=== PATIENT | female | born 1975 | race Caucasian/White ===

== ENCOUNTER 2021-10-22 14:55 | Outpatient (REF) | payer MEDICARE, MEDICAID, SELFPAY ==
[2021-10-22 15:55] LABS: MANUAL DIFF FLAG NO
[2021-10-22 16:00] LABS: Basophils Absolute Auto 0.1 X10*3/uL (0.0-0.2); Basophils Percent Auto 0.6 % (0-2); Eosinophils Absolute Auto 0.3 X10*3/uL (0.0-0.4); Eosinophils Percent Auto 4.1 % (0-4); Hematocrit 39.6 % (37.0-47.0); Hemoglobin 13.1 g/dl (12.0-16.0); Imm Gran Abs Auto 0.03 X10*3/uL (0.00-0.03); Imm Gran Pct Auto 0.4 % (0.0-0.4); Lymphocytes Absolute Auto 1.9 X10*3/uL (1.2-4.9); Lymphocytes Percent Auto 24.4 % (20-40); Mean Corpuscular HGB Conc 33.1 g/dl (31.0-35.0); Mean Corpuscular Volume 87.8 fL (80.0-98.0); Mean Platelet Volume 9.8 fL (9.4-12.3); Monocytes Absolute Auto 0.6 X10*3/uL (0.1-1.2); Monocytes Percent Auto 7.1 % (2-11); Neutrophils Percent Auto 63.4 % (45-73); Platelet Count 316 X10*3/uL (160-400); Red Blood Count 4.51 X10*6/uL (4.20-5.50); Red Cell Distribution Width 12.7 % (11.0-16.0); White Blood Count 7.8 X10*3/uL (4.8-10.8)
== END 2021-10-22 14:56 | disposition home or self-care (01) ==
LOC: HO.LAB 14:55
PROVIDERS: PCP Nurse Practitioner Family; Visit Provider Internal Medicine Pulmonary Disease
DX: Z91.09 Other allergy status, other than to drugs and biological substances (principal); J45.909 Unspecified asthma, uncomplicated; R06.00 Dyspnea, unspecified; U09.9 Post COVID-19 condition, unspecified
CPT/HCPCS: 36415; 82785; 85025; 86003; 99202

== ENCOUNTER 2021-11-07 16:17 | Outpatient (REF) | payer MEDICARE, MEDICAID, SELFPAY ==
--- NOTE | ~2021-11-07 | CT_ITS ---
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 COMPARISON: None TECHNIQUE: Multidetector volumetric CT imaging of the chest was done. Axial MIP volume rendering provided. Sagittal and coronal reformatted images were obtained. This CT examination was performed using dose optimization techniques as appropriate, variously including the following: *Automated exposure control *Adjustment of mA and/or kV according to patient size (this includes techniques or standardized protocols for targeted exams where dose is matched to indication/reason for exam; i.e. extremities or head) *Use of iterative reconstruction technique DLP: 148 mGy-cm FINDINGS: CLEANING SUPERVISOR: Well-expanded lungs. LUNGS: The lungs are well expanded with patchy atelectatic changes in right middle lobe, lingula and left lower lobe lateral basal segment. No acute consolidation, pulmonary nodule or ground-glass density seen. MEDIASTINUM: The thyroid lobes are symmetric and normal. The central trachea and the bronchi are widely patent. The heart size and great vessels are normal caliber. No abnormal size mediastinal or hilar lymph node seen. No pericardial effusion. PLEURA: There is no pleural effusion. No pleural mass or thickening. AXILLA: No lymphadenopathy. UPPER ABDOMEN: Visualized liver, spleen, pancreas and bilateral adrenal glands are unremarkable. OSSEOUS STRUCTURES: No lytic or sclerotic process seen. There is mild ventral spondylosis dorsal spine. CT/CT chest wo con IMPRESSION: Atelectatic changes in lingula, left lower lobe lateral basal segment and right middle lobe. Acute pneumonic consolidation seen. No pleural effusion. Fleischner guidelines were followed.
== END 2021-11-07 16:18 | disposition home or self-care (01) ==
LOC: HO.CT 16:17
PROVIDERS: Visit Provider Internal Medicine Pulmonary Disease
DX: U09.9 Post COVID-19 condition, unspecified (principal)
CPT/HCPCS: 71250

== ENCOUNTER → 2021-11-13 14:37 | Outpatient (REF) | payer MEDICARE, MEDICAID, SELFPAY ==
--- NOTE | 2021-11-13 14:41 | CA_ITS ---
Transthoracic Echocardiogram Patient (Last, First, Middle): Amy Stover L Gender: Female Date of : 1975 Age: 46 Procedure Date: 11/13/2021 Procedure Type: Transthoracic Echocardiogram Location: OP Height: 157.48 cm Weight: 86.18 kg BSA: 1.87 m2 Heart Rate: bpm BP: 122 / 68 mmHg Pipe Chipper: Referring MD: Oskar Bhakta MD Symptoms: R06.00 - Dyspnea, unspecified Study Quality: Good ECG Rhythm: Sinus Conclusions: - The left ventricular systolic function is normal. The calculated ejection fraction is 69% by biplane method. - No obvious valvular pathology seen on this study. - The pulmonary artery systolic pressure is normal. - The inferior vena cava is normal in size and collapses greater than 50% with inspiration. - There is no evidence of pericardial effusion. Findings Left Ventricle Normal left ventricular cavity size. There is normal left ventricular wall thickness. The left ventricular systolic function is normal. The calculated ejection fraction is 69% by biplane method. There is no evidence of regional wall motion abnormalities. Diastolic function is normal for age. Right Ventricle Normal right ventricular cavity size and systolic function. Atria Both atria are normal in size. Aortic Valve The aortic valve was not well visualized. There is no aortic valve stenosis. There is no aortic valve regurgitation. Mitral Valve The mitral valve appears normal. There is trace mitral valve regurgitation. There is no mitral valve stenosis. Pulmonic Valve The pulmonic valve was not well visualized. Tricuspid Valve Normal tricuspid valve structure. There is trace tricuspid valve regurgitation. The pulmonary artery systolic pressure is normal. Great Vessels The aortic annulus, sinuses of valsalva, and asc aorta are normal in size. Venous The inferior vena cava is normal in size and collapses greater than 50% with inspiration. Pericardium/Pleural There is no evidence of pericardial effusion. Prior Study Comparison No prior study available for comparison. Recommendations, Care & Conclusions No obvious valvular pathology seen on this study. Measurements 2D Linear Measurements IVSd: 0.85 0.6-0.9/0.6-1.0 cm LVIDd: 4.97 3.9-5.3/4.2-5.9 cm LVIDd Index: 2.66 2.4-3.2/2.2-3.1 cm/m2 LVIDs: 2.73 2.0-3.6 cm LVPWd: 0.88 0.7-1.1 cm Ao Root: 2.90 2.1-3.5 cm LA Diam: 4.10 2.7-3.8/3.0-4.0 cm LAIDs Index: 2.19 1.5-2.3 cm/m2 LV Mass: 184.84 67-162/88-224 g LV Mass Index: 98.84 43-95/49-115 g/m2 LVOT Diam: 2.00 3.0+(-)1.3 cm 2D Systolic Function EF 4C: 70.00 >55% EF 2C: 68.10 >55% EF BiP: 69.30 >55% Mitral Valve MV Pk E: 0.90 MV PK A: 0.96 MV Decel Time: 186.00 E/A: 0.90 E'Lateral: 17.50 E'Medial: 9.90 E/E' Med: 9.10 E/E' Lat: 5.10 PHT: 54.00 MVA PHT: 4.07 Decel [place]: 4.84 Aortic Valve AoV Pk Curtis: 1.61 AoV Mn Curtis: 1.10 AoV VTI: 0.38 AoV Pk Grad: 10.00 Aov Mn Grad: 6.00 BAKARI Cont.VTI: 2.40 LVOT LVOT Pk Curtis: 1.28 LVOT Mn Curtis: 0.79 LVOT VTI: 0.29 LVOT Pk Grad: 7.00 LVOT Mn Grad: 3.00 LVOT Diam: 2.00 LVOT Area: 3.14 Diastolic Function MV Pk E: 0.90 MV Pk A: 0.96 E/A: 0.90 E'Medial: 9.90 E/E' Med: 9.10 E' Laterial: 17.50 E/E' Lat: 5.10 Right Ventricle TAPSE (mm): 28.00 TVS' Curtis: 13.00 Tricuspid Valve TR Pk Curtis: 2.01 TR Pk Grad: 16.00 Great Vessels Aorta Ao Root-2D: 2.90 2.0-3.7 cm Ao Asc: 2.90 2.1-3.4 cm Pulmonary Valve PV Pk Curtis: 1.09 Peak PV Grad: 5.00 Updated in Other Vendor System with Status of Final John Shen MD electronically signed on 11/14/2021 11:52:16 AM with status of Final
== END ==
LOC: HO.CARD 14:37
PROVIDERS: PCP Nurse Practitioner Family; Visit Provider Internal Medicine Pulmonary Disease
DX: R06.00 Dyspnea, unspecified (principal); Z91.09 Other allergy status, other than to drugs and biological substances
CPT/HCPCS: 93306; 99212

== ENCOUNTER 2021-12-06 15:51 | Outpatient (REF) | payer MEDICARE, MEDICAID, SELFPAY ==
--- NOTE | 2021-12-06 17:33 | PFT_ITS ---
INDICATION: Cough. SPIROMETRY: FEV1 to FVC of 89% with an FEV1 of 2.7 L which is 96% predicted and an FVC of 3.05 L which is 37% predicted. Post bronchodilators, there was a significant response both in the FVC and the FEV1. Maximum voluntary ventilation 96% predicted. LUNG VOLUMES: Total lung capacity 78% predicted. DIFFUSION CAPACITY: DLCO 97% predicted. INTERPRETATION: No obstructive ventilatory defect. There was a significant response to bronchodilators noted. Maximum voluntary ventilation within normal limits. However, the patient does have a mild restrictive ventilatory defect of unclear etiology. Need to consider underlying interstitial lung conditions and/or correcting for elevated BMI. The patient does have a normal diffusion capacity. If asthma is in the differential, methacholine challenge may be helpful in assessing for hyper-reactive airways, otherwise clinical diagnosis is warranted. MD DOUGLAS Bañuelos/MICHELET / [id number]
== END 2021-12-06 15:52 | disposition home or self-care (01) ==
LOC: HO.RESP 15:51
PROVIDERS: Visit Provider Internal Medicine Pulmonary Disease
DX: J45.909 Unspecified asthma, uncomplicated (principal)
CPT/HCPCS: 94060; 94727; 94729